=== PATIENT | female | born 1995 | race Hispanic/Latino ===

== ENCOUNTER 2017-01-24 07:30 | Inpatient (IN) | payer OTHER ==
[2017-01-24 11:03] VITALS: BMI 41.6
[2017-01-24] MEDS ORDERED: Lorazepam 2 MG/ML VIAL SLOW IVP PRN (14:40)
[2017-01-24] MEDS ORDERED: Ondansetron ODT 4 MG TAB PO PRN (14:40)
[2017-01-24] MEDS ORDERED: Ondansetron HCl/PF 4 MG/2 ML Vial IVP PRN (14:40)
[2017-01-24] MEDS ORDERED: Acetaminophen 325 MG TAB PO PRN (14:40)
[2017-01-24] MEDS ORDERED: PROVENTIL INHALER 6.7 G (200 INHALATIONS) INH PRN (14:40)
[2017-01-24 15:30] LABS: #Basophils 0.1 thou/uL (0.0-0.2); #Eosinphils 0.2 thou/uL (0.0-0.7); #Lymphocytes 2.2 thou/uL (1.20-3.40); #Monocytes 0.5 thou/uL (0.11-0.59); #Neutrophils 2.9 thou/uL (1.40-6.50); %Basophils 1.6 % (0.0-1.0); %Eosinophils 2.8 % (0.0-10.0); %Lymphocytes 37.7 % (28.0-48.0); %Monocytes 8.4 % (0.0-4.0); Hematocrit 38.1 % (36.0-47.0); Mean Platelet Volume 7.3 fL (7.4-10.4); Red Blood Cell (RBC) Count 4.44 mill/uL (4.00-5.20); White Blood Cell (WBC) Count 5.9 thou/uL (4.8-10.8)
[2017-01-24 15:54] LABS: ALT (SGPT) 15 U/L (8-55); AST (SGOT) 17 U/L (5-34); Alkaline Phosphatase 180 U/L (40-150); Anion Gap 12 mmol/L (10-20); BUN (Urea Nitrogen) 4 mg/dL (7.0-18.7); Bilirubin, Total 0.5 mg/dL (0.2-1.2); Calc. Creatinine Clearance 260 mL/min (70-130); Calcium 9.2 mg/dL (7.8-10.44); Carbon Dioxide 20 mmol/L (22-29); Chloride 95 mmol/L (98-107); Estimated GFR-MDRD Greater than 90; Globulin 3.8 g/dL (2.4-3.5); Protein, Total 7.8 g/dL (6.0-8.3)
[2017-01-24] MEDS ORDERED: OXcarbazepine 300 MG TAB PO SCH (21:00)
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
[2017-01-25] MEDS: OXcarbazepine 300 MG TAB PO SCH (09:39)
--- NOTE | 2017-01-25 16:51 | PRG ---
DATE OF SERVICE: 01/25/2017 LOCATION: [facility] SUBJECTIVE HISTORY: The patient remained stable overnight, has been stable from neurological standp oint. She currently denies any new neurological symptoms. She denies any headache, nausea, or vomi ting. She is able to eat and tolerate diet as well. The patient for the first 24 hours of the vide o EEG monitoring had 4 push button events which will be described in detail in the video EEG report, these were her habitual small left intense episode that she is currently having at night. No tonic clonic seizure activity overnight. The patient has been stable. OBJECTIVE HISTORY: VITAL SIGNS: Temperature 98.4, pulse rate 72, respiratory rate 20, O2 sats 97% on room air, and blo od pressure 105/77. GENERAL: Well-developed, well-nourished female, in no apparent distress. HEENT: Normocephalic, atraumatic. Normal sclerae. RESPIRATORY: Clear to auscultation bilaterally. CARDIOVASCULAR: Regular rate and rhythm. NEUROLOGIC: The patient is awake, alert, oriented x3. Speech and language are intact. Cranial ner ves: Pupils are reactive to light bilaterally. Extraocular movements intact. Visual jordan intact . No facial droop noted. Facial sensation symmetric bilaterally. Motor: Normal tone and bulk. T he patient had 5/5 strength in bilateral upper and lower extremities. Sensation intact to fine touc h throughout. Reflexes 1+ throughout. Toes are downgoing bilaterally. No clonus. Negative Hoffma n sign bilaterally. Cerebellar intact to syltko-[id number]-ywcnxp and hbmm-cj-qfok test bilaterally. Gai t and Romberg not tested. LABORATORY DATA: No new labs to review. IMAGING: No new imaging to review. IMPRESSION: 1. Nocturnal spell 2. History of complex partial epilepsy with generalization. 3. Hyponatremia, chronic. PLAN: 1. We will continue to monitor the patient in the epilepsy monitoring unit to capture more of her h abitual nocturnal spells which will further assist us in classifying the spells into epileptic versu s nonepileptic spells which will further guide us in the appropriate treatment plan. 2. Discussed in length with the patient and her father about decreasing her seizure medication to c apture more of her habitual nocturnal spells and to even capture her more intense strong seizures. The patient and her father are very hesitant to decrease the dose of Trileptal and they are also kamilah y hesitant to stop the medication to capture more spells. After a lengthy discussion, the patient a nd her father agreed to decrease the night dose of Trileptal from 1500 mg to 1200 mg. She did not w ant us to decrease the dose any further than that, so will continue the morning dose of Trileptal at 600 mg and decrease the night dose of Trileptal to 1200 mg from 1500 mg. 3. No sleep deprivation since patient's episodes happen during sleep. 4. Photic stimulation and hyperventilation daily. 5. Continue p.r.n. Ativan for prolonged seizures or cluster of seizures. 6. Fall precautions and seizure precautions implemented. 7. Trileptal level is still pending. 8. Regular diet. 9. Vital signs and neuro checks every 4 hours. 10. SCDs for DVT prophylaxis. 11. The 24-hour video EEG recording. Results were discussed in detail with the patient and the fat her spent more than 35 minutes discussing the first day video EEG results, discussing the treatment plan for day 2 and answering all of their questions to their satisfaction. I spent more than 35 minutes going over the entire treatment plan for day 2 and the results for day 1 and the patient and the father agreed with plan. The entire plan was also discussed with the nurs e taking care of the patient. We will continue to monitor the patient in the epilepsy monitoring un it with continuous video EEG monitoring.
[2017-01-25] MEDS ORDERED: OXcarbazepine 300 MG TAB PO SCH (21:00)
[2017-01-26] MEDS: OXcarbazepine 300 MG TAB PO SCH (09:43)
[2017-01-26 18:08] LABS: Anion Gap 11 mmol/L (10-20); BUN (Urea Nitrogen) 6 mg/dL (7.0-18.7); Calc. Creatinine Clearance 236 mL/min (70-130); Calcium 9.2 mg/dL (7.8-10.44); Carbon Dioxide 22 mmol/L (22-29); Chloride 101 mmol/L (98-107); Estimated GFR-MDRD Greater than 90
[2017-01-26] MEDS ORDERED: OXcarbazepine 300 MG TAB PO SCH (21:00)
--- NOTE | 2017-01-27 00:46 | PRG ---
DATE OF SERVICE: 01/26/2017 LOCATION: [place] [address]. SUBJECTIVE HISTORY: The patient did not have any acute events overnight. She has been stable from n eurological standpoint. She currently denies any neurological symptoms. She denies headaches, nause a, vomiting. She is able to eat and tolerate the diet well. The patient had 4 habitual events on da y 2 of 24 hours of video EEG monitoring. No tonic clonic seizure activity noted. The patient remain s stable. OBJECTIVE HISTORY: VITAL SIGNS: Temperature 98.5, pulse rate 78, respiratory rate 18, O2 sats 99% on room air, blood pr essure 118/67. GENERAL: Well-developed, well-nourished female in no apparent distress. RESPIRATORY: Clear to auscultation bilaterally. CARDIOVASCULAR: Regular rate and rhythm. NEUROLOGIC: The patient is awake, alert, and oriented x3. Speech and language are intact. Cranial nerves: Pupils are reactive to light bilaterally. Extraocular movements intact. Visual jordan inta ct. Facial sensation symmetric bilaterally. Motor: Normal tone and bulk. The patient had 5/5 stre ngth in bilateral upper and lower extremities . PLAN: 1. We will continue to monitor the patient in the epilepsy monitoring unit with continuous video EEG monitoring to capture more of her current habitual episodes that she is having at night, so we need to further classify those spells if epileptic versus nonepileptic which would further guide us in the appropriate treatment plan. Also, we will decrease her seizure medication with and we can cap ture the bigger episodes that they describe as seizures to see if those big episodes/seizures are epi leptic or nonepileptic in nature. So far we have not captured any of her big episode/seizure. We skinner ve captured some small episodes, but we have not captured any big episodes that they describe as big seizures, so we will continue to monitor the patient to see if we can capture her big seizure-like ep isode so that we can determine if they are epileptic or nonepileptic in nature. 2. The patient and the father were very hesitant to stop her antiepileptic medications while she is in the epilepsy monitoring unit. They do not want to stop her seizure medication altogether. So we will decrease the Trileptal dose to 600 mg at night and 300 mg tomorrow morning to see if we can capt ure her big seizure-like episodes. 3. No sleep deprivation since the patient's episodes happened during sleep. 4. Photic stimulation and hyperventilation. 5. Continue p.r.n. Ativan for prolonged seizures or cluster of seizures. 6. Fall precautions and seizure precautions implemented. 7. Trileptal level is still pending. 8. Regular diet. 9. Vital signs and neuro checks every 4 hours. 10. SCDs per deep venous thrombosis prophylaxis. 11. The 24-hour second day video EEG recording results were discussed in detail with the patient and the father. I spent more than 35 minutes going over the second day video EEG results, discussing th e adjustment in her antiepileptic medication for tonight and tomorrow morning, and answering all thei r questions to their satisfaction. The patient and the father agreed with the plan. The entire plan was also discussed with the nurse taking care of the patient. So we will continue to monitor the pa tient to capture her small nocturnal episodes as well as to see if we can capture any of her big seiz ure-like episodes by adjusting/decreasing her seizure medication.
[2017-01-27] MEDS ORDERED: OXcarbazepine 300 MG TAB PO SCH ×3 (09:00→21:00)
[2017-01-27] MEDS ORDERED: OXcarbazepine 600 MG TAB PO SCH (21:00)
--- NOTE | 2017-01-28 05:57 | PRG ---
DATE OF SERVICE: 01/27/2017. SUBJECTIVE HISTORY: The patient did not have any acute events overnight. She has been stable from neurological standpoint and she currently denies any new neurological symptoms. She denies headache , nausea, or vomiting. She is able to eat and tolerate her diet well. The patient had few more of her habitual nocturnal events on day #3 of video EEG monitoring. No tonic clonic seizure activity n oted. The patient remains stable. OBJECTIVE HISTORY: VITAL SIGNS: Temperature 98.4, pulse rate 92, respiratory rate 18, O2 sats 98% on room air, blood p ressure 127/76. GENERAL: Well-developed and well-nourished female, in no apparent distress. RESPIRATORY: Clear to auscultation bilaterally. CARDIOVASCULAR: Regular rate and rhythm. NEUROLOGIC: The patient is awake, alert, and oriented x3. Speech and language are intact. Cranial nerves: Pupils are reactive to light bilaterally. Extraocular movements are intact. Visual field s are intact. No facial droop noted. Facial sensation is symmetric bilaterally. Motor: Normal to ne and bulk. The patient had 5/5 strength in bilateral upper and lower extremities. Sensation is i ntact to fine touch throughout. Reflexes are 1+ throughout. Toes are downgoing bilaterally. No cl onus. Negative Gonzales sign bilaterally. Cerebellar intact to dkajuf-ptac-qyvffc and ciwi-nc-upzr test bilaterally. Gait and Romberg not tested. LABORATORY DATA: Basic metabolic panel done yesterday showed sodium of 130. Trileptal level is 33, which is within the therapeutic range. IMAGING: No new imaging to review. IMPRESSION: 1. Nocturnal spells. 2. History of complex partial epilepsy with generalization. 3. Hyponatremia, chronic. PLAN: 1. The patient has had several of her habitual nocturnal small episodes during her hospital stay. The patient has not had any of her big episodes or seizures that she used to have before while she h as been here, so we will continue to monitor the patient in the epilepsy monitoring unit to capture more of her episodes. 2. We will put her back on her home dose of Trileptal 600 mg in the morning and total of 1500 mg at night. We will resume the home dose of Trileptal starting tonight. 3. No sleep deprivation since the patient's episodes happened during sleep. 4. Photic stimulation and hyperventilation daily. 5. Continue p.r.n. Ativan for prolonged seizures or cluster of seizures. 6. Fall precautions and seizure precautions implemented. 7. Regular diet. 8. Vital signs and neuro checks every 4 hours. 9. SCDs for DVT prophylaxis. 10. The 24-hour video EEG results were discussed in detail with the patient. The patient has had s everal of her habitual nocturnal episodes. These episodes usually happen when she is sleeping, happ ens after several hours of sleep, she suddenly wakes up and has thrashing movement of her arms and l egs. She is very hypermotor. She has non-rhythmic movement of her arms and legs in different direc tions with different amplitude and frequency. She has her eyes open and looks around. At times, sh mena appears to be scared. There is some grunting noted. There is intermittent stiffening of her arms and legs noted. This episode lasts anywhere between couple of seconds to 1 minute, not more than 2 minutes. There was no clear postictal phase, after the episodes, she returns back to her baseline almost immediately. She does not recall most of the episodes. At this point, the differential includes: 1. Non-REM sleep disorder including sleep terror. 2. Parasomnias. 3. seizures. The EEG during this event only shows increased myogenic activity with normal un derlying background rhythm. No epileptiform activity or electrographic seizures noted during these events. There is no suppression noted in any of the hemispheres. The entire results were discussed in detail with the patient and the father and I spent more than 35 minutes discussing the results, going over the treatment plan with them, likely the plan upon discharge will be to resume her home d ose of Trileptal and likely refer her for sleep study with polysomnogram to rule out sleep related d isorder. For now, we will continue to monitor the patient in the epilepsy monitoring unit. Again, I spent more than 35 minutes going over the entire treatment plan.
[2017-01-28 11:12] VITALS: BP 122/82; TEMP 98.1
--- NOTE | 2017-02-07 10:41 | EEG ---
Referring Physician: DR. JASSON GREY EEG # [id number] [id number] PROCEDURE: VIDEO ELECTROENCEPHALOGRAM REPORT PATIENT NAME: ELLIE SHETTY DATE OF : 1995 STUDY DATE: 01/24/2017, 10:53 AM - 01/25/17, 11:00 AM, DAY 1 VIDEO EEG REPORT INDICATION: NOCTURNAL SPELLS THE STUDY IS REVIEWED AND INTERPRETED BY ME. TECHNICAL DESCRIPTION: The study is of excellent quality for interpretation. It is a 22 channel digital EEG recording utilizing ten-twenty international electrode placement system. BACKGROUND EEG DESCRIPTION: WAKEFULNESS: During wakefulness the background activity consists of mixed rhythms, the patient has intermittent 8 hertz activity mixed with abundant moderate amplitude theta activity of 6-7 hertz, along with low amplitude beta activity and myogenic activity. At times theta rhythm is more seen than alpha rhythm. The background activity is symmetric and reactive bilaterally. DROWSINESS: The subject is able to attain periods of drowsiness with moderate to high amplitude diffuse theta activity. There is no consistent asymmetry or paroxysmal activity noted. SLEEP: Subject is able to attain non-REM sleep with high amplitude normal sleep potentials. Again, no consistent asymmetry or paroxysmal activity is noted. The patient has several normal arousals during sleep. INDUCTION: HYPERVENTILATION: With fair effort results in no significant change in the background activity. PHOTIC STIMULATION: No photic drive seen. INTERICTAL EEG DESCRIPTION: During Day 1 video EEG report, there is no clear epileptiform activity noted. No electrographic seizures noted. No focal abnormality noted. ICTAL EEG DESCRIPTION: The patient had 4 push button events, all the 4 events were similar clinically and electrographically. The first push button event was on 01/24/2017 at 14:15:21, the second push button event was on 01/25/2017 at 00:51:56 , the third push button event was on 01/25/2017 at 4:45:14 AM, the last push button event was on 01/25/2017 at 11:00:17 AM. Clinically, with all the 4 push button events, initially patient is sleeping and then suddenly she wakes up, she becomes hyperactive, she starts moving her hands and legs in a nonrhythmic fashion with varying amplitude, frequency and direction. In between, at times she tenses up, she looks around and appears to be disoriented or confused and scared, she exhibits some grunting. This is followed by hyperventilating and heavy and slow breathing and cessation of her movement and eventually she returns to her baseline. With all the 4 events, there is no postictal period noted. She is able to follow commands appropriately, answer orientation questions, there is no focal weakness noted after the events. These events last anywhere between 1-2 minutes, again with no postictal confusion or weakness. After the end of the event she goes back to sleep. EEG DESCRIPTION: With all the 4 events, the EEG starts with normal sleep background rhythm with normal sleep potentials, this is followed by increased EMG/myogenic activity with arousal clinically. In between the myogenic activity, the underlying background activity shows theta and delta rhythm which is symmetric bilaterally. This is followed by decreased myogenic activity with continued theta and delta activity which eventually returns back to her normal background rhythm afterwards. There is no suppression noted after the event sops. There is no epileptiform activity noted during these events. No electrographic seizures noted during these events. There is no buildup on any rhythm during these events. EK per minute. OF NOTE: During these events the patient's heart rate increases. She becomes tachycardic with decreased blood pressure. There was no tonic-clonic activity noted with these events, no foaming at the mouth noted with these events. IMPRESSION: DAY 1 VIDEO EEG REPORT DAY 1 VIDEO EEG REPORT SHOWS NORMAL AWAKE AND ASLEEP STAGES. AT TIMES, THERE IS PROMINENCE OF THETA RHYTHM COMPARED TO ALPHA RHYTHM. THERE IS NO INTERICTAL EPILEPTIFORM ACTIVITY OR ELECTROGRAPHIC SEIZURES NOTED. THE PATIENT HAD 4 PUSH BUTTON EVENTS, DESCRIBED ABOVE, WHICH WERE NOT ASSOCIATED WITH ANY ELECTROGRAPHIC CHANGES WHICH WOULD SUPPORT NONEPILEPTIC SPELLS. WE WILL CONTINUE TO MONITOR THE PATIENT TO CAPTURE MORE OF HER SPELLS. THE RESULTS WERE DISCUSSED IN DETAIL WITH THE PATIENT AND HER FATHER. Industrial Truck Driver: AMANDA Machine Burrer: EEG.YOKASTA MONROE
--- NOTE | 2017-02-07 15:26 | EEG ---
Referring Physician: DR. JASSON GREY EEG # [id number] 17-14 PROCEDURE: VIDEO ELECTROENCEPHALOGRAM REPORT PATIENT NAME: ELLIE SHETTY / MOUSTAPHA 1995 STUDY DATE: 01/25/2017 11:00 AM - 01/26/2017. 11:00 AM, DAY 2 VIDEO EEG REPORT INDICATION: NOCTURNAL SPELLS THE STUDY IS REVIEWED AND INTERPRETED BY ME. TECHNICAL DESCRIPTION: This is a 22 channel digital EEG recording performed utilizing ten-twenty international electrode placement system. INDUCTION: HYPERVENTILATION: With fair effort results in no significant change in the background activity. PHOTIC STIMULATION: No photic drive seen, Abundant eye blink artifact noted with photic stimulation. INTERICTAL EEG DESCRIPTION: ICTAL EVENTS: The first push button event on 01/25/2017 at19:04:50 was testing done by the nurse to make sure that the system was working. The patient had total of 5 events on Day 2 video EEG recording, 2 of the 5 events were not associated with push button, 3 of the 5 events were push button events. CLINICAL DESCRIPTION: All the 5 events were similar in nature clinically. The patient was sleeping and then she would wake up all of a sudden and would start having random, nonrhythmic movement of her arms and legs with varying frequency , amplitude and direction, at times side to side movement of her legs noted. She had her eyes open and she would be looking around, at times appeared to be scared, very restless and hypermotor, intermittent stiffness of her arms and legs noted. At times she would grunt. With one of the events she was purposeful during the event and was covering herself with the blanket and smiling. The events lasted roughly a minute or shorter in duration. The patient did not have any postictal symptoms. After she stopped moving, she is completely back to her normal self. With these events there is transient increase in her heart rate. No other change in her vital signs noted. With one of the events she said that she had a nightmare where she felt like someone is going to hurt her or her Dad. EEG DESCRIPTION: The electrographic findings remained the same with all the 5 events. The patient starts with normal sleep background and with the clinical event there is increased myogenic activity noted on the EEG with underlying theta and delta background. This is followed by decrease in myogenic activity but continuation of underlying normal background rhythm. After the clinical event stops, there is no suppression noted on the EEG. No epileptiform activity noted during these events, no electrographic seizures noted during these events. The EEG continues to show normal background rhythm with increased myogenic activity. This would support nonepileptic events. IMPRESSION: DAY 2 VIDEO EEG REPORT DAY 2 VIDEO EEG REPORT SHOWS NORMAL AWAKE, DROWSY AND ASLEEP STAGES. THERE IS NO INTERICTAL EPILEPTIFORM ACTIVITY NOTED. NO ELECTROGRAPHIC SEIZURES NOTED. NO ASYMMETRY NOTED BETWEEN THE TWO HEMISPHERES. THE PATIENT HAD 5 ICTAL EVENTS DESCRIBED ABOVE WHICH DID NOT SHOW ANY CHANGE ON THE EEG AND EEG CONTINUES TO SHOW NORMAL BACKGROUND RHYTHM AND THIS WOULD SUPPORT NONEPILEPTIC EVENTS. WILL CONTINUE TO MONITOR THE PATIENT TO CAPTURE MORE OF HER HABITUAL EVENTS. THE RESULTS WERE DISCUSSED IN DETAIL WITH THE PATIENT AND HER FATHER. OF NOTE: EKG IN 90s. Imaging Tech:[email or web address] Storage Management Architect: EEG.YOKASTA MONROE
--- NOTE | 2017-02-07 16:02 | EEG ---
Referring Physician: DR. JASSON GREY EEG # [id number] 17-14 PROCEDURE: VIDEO ELECTROENCEPHALOGRAM REPORT NAME OF PATIENT: ELLIE SHETTY 1995 # [id number] LOCATION: [place] [id number] REPORT TYPE: VIDEO ELECTROENCEPHALOGRAM REPORT: STUDY DATE: 01/26/2017, 11:00 AM - 01/27/2017, 11:00 AM, DAY 3 VIDEO EEG REPORT THE STUDY IS REVIEWED AND INTERPRETED BY ME. TECHNICAL DESCRIPTION: Study is of excellent quality for interpretation. This is a 22 channel digital EEG recording performed utilizing ten-twenty international electrode placement system. BACKGROUND EEG DESCRIPTION: WAKEFULNESS: During wakefulness, the background activity consists of mixed frequencies, includes moderate amplitude theta rhythm of 7 hertz, mixed with intermittent alpha rhythm of 8-9 hertz, low amplitude beta activity and also myogenic activity representing frontalis and temporalis muscles bilaterally. It appears that there is more theta activity than alpha rhythm which may indicate mild slowing. The background activity is symmetric and reactive bilaterally. There is no asymmetry noted between the two hemispheres. DROWSINESS: The subject is able to attain periods of drowsiness with diffuse theta activity. SLEEP: The subject is able to attain non-REM sleep with normal high amplitude sleep potentials. During sleep, there is moderate to high amplitude theta and delta slowing noted in bioccipital regions, which does not evolve. There are also multiple arousals noted during sleep. INDUCTION: HYPERVENTILATION: Was stopped after some time because patient could not give full effort. PHOTIC STIMULATION: No photic drive seen, eye blink artifact noted. INTERICTAL EEG DESCRIPTION: During Day 3 video EEG recording there is no clear epileptiform activity noted, no electrographic seizures noted. No focal slowing or asymmetry noted between the two hemispheres. ICTAL EEG DESCRIPTION: The patient had 3 ictal events on Day 3 video EEG recording. Clinically the events are similar to her prior events, patient is usually sleeping and then she wakes up. She has thrashing movement of her arms and legs, she moves her arms and legs nonrhythmically in different directions with different amplitude and frequencies. There is intermittent stiffness of her arms and legs, she has her eyes open and looks around, sometimes she appears to be scared, There is some grunting noted. The events last anywhere between 1-2 minutes, mostly around 1 minute. There is no postictal phase noted. The patient returns to baseline immediately. There is transient increase in her heart rate with these events. She does not recall most of the events. EEG DESCRIPTION: The EEG description also remains the same like her prior events. It starts with normal sleep background, it appears that the patient is in deep non-REM sleep, and with the clinical event there is increased myogenic activity noted diffusely, this is mixed with underlying theta and delta background. Eventually, the myogenic activity decreases and subsides, but the underlying background activity continues to show theta and delta activity. There is no epileptiform activity during these events, no electrographic seizures noted. There is no evolving of any rhythm. There is no suppression noted after the event stops. EKG: IN 90s. IMPRESSION: DAY 3 VIDEO EEG REPORT ON DAY 3 VIDEO EEG RECORDING, IT APPEARS THAT EVEN THOUGH THE PATIENT HAS INTERMITTENT ALPHA RHYTHM, THE PREDOMINANT RHYTHM IS THETA WHICH INDICATES MAYBE MILD SLOWING. THIS SLOWING IS MORE PROMINENT DURING SLEEP. THERE IS NO CLEAR INTERICTAL EPILEPTIFORM ACTIVITY OR ELECTROGRAPHIC SEIZURE. THE PATIENT HAD 3 MORE SIMILAR ICTAL EVENTS ON DAY 3, DESCRIBED ABOVE, WITH NO ASSOCIATED EPILEPTIFORM ACTIVITY OR ELECTROGRAPHIC SEIZURE ON THE EEG. THE EEG DURING THESE EVENTS SHOWS INCREASED MYOGENIC ACTIVITY WITH THETA AND DELTA BACKGROUND. THE DIFFERENTIAL FOR THESE EVENTS COULD BE: 1.) NONREM SLEEP DISORDER / SLEEP TERROR 2.) PARASOMNIAS 3.) NOCTURNAL FRONTAL LOBE SEIZURES. THE PATIENT DID NOT HAVE ANY TONIC-CLONIC SEIZURE ACTIVITY DURING HER ENTIRE STAY SO FAR. THE ENTIRE EEG RESULTS WERE DISCUSSED IN DETAIL WITH THE PATIENT AND HER FATHER. WILL CONTINUE TO MONITOR THE PATIENT FOR ANOTHER DAY. Repulping Supervisor: AMANDA Activities Concierge: EEG.YOKASTA MONROE
== END 2017-01-28 15:46 | disposition home or self-care (01) | DRG 887 ==
LOC: IMCU/EMU 07:30 → UNDOADMIN 07:30 → SURG A 07:30 → EDSTATUS 08:00 → IMCU/EMU 11:46
PROVIDERS: ADMIT Student in an Organized Health Care Education/Training Program; ATTEND Student in an Organized Health Care Education/Training Program
DX: G47.9 Sleep disorder, unspecified (principal); E87.1 Hypo-osmolality and hyponatremia; G40.209 Localization-related (focal) (partial) symptomatic epilepsy and epileptic syndromes with complex partial seizures, not intractable, without status epilepticus; F51.4 Sleep terrors [night terrors]; F51.8 Other sleep disorders not due to a substance or known physiological condition; G47.50 Parasomnia, unspecified; J45.909 Unspecified asthma, uncomplicated; Z91.012 Allergy to eggs; Z91.010 Allergy to peanuts; Z91.013 Allergy to seafood
CPT/HCPCS: 36415; 80048; 80053; 80183; 85025; 95951; 95957

== ENCOUNTER 2017-05-22 02:54 | Inpatient (IN) | payer OTHER ==
[2017-05-22 03:36] LABS: Lavender RECEIVED; Red RECEIVED
[2017-05-22 03:40] LABS: #Basophils 0.1 thou/uL (0.0-0.2); #Eosinphils 0.2 thou/uL (0.0-0.7); #Lymphocytes 2.5 thou/uL (1.20-3.40); #Monocytes 0.6 thou/uL (0.11-0.59); #Neutrophils 3.2 thou/uL (1.40-6.50); %Basophils 0.8 % (0.0-1.0); %Eosinophils 2.5 % (0.0-10.0); %Lymphocytes 38.9 % (28.0-48.0); %Monocytes 9.4 % (0.0-4.0); %Neutrophils 48.4 % (31.0-61.0); Hemoglobin 11.4 g/dL (12.0-16.0); Mean Corpuscular HGB CONC 34.1 g/dL (32.0-36.0); Mean Corpuscular Hemoglobin 28.8 pg (25.0-35.0); Mean Corpuscular Volume 84.3 fl (77.0-87.0); Mean Platelet Volume 7.1 fL (7.4-10.4); Platelet Count 254 thou/uL (130-400); RBC Distribution Width 12.6 % (11.5-14.5); Red Blood Cell (RBC) Count 3.98 mill/uL (4.00-5.20); White Blood Cell (WBC) Count 6.5 thou/uL (4.8-10.8)
[2017-05-22 03:53] LABS: ALT (SGPT) 16 U/L (8-55); AST (SGOT) 16 U/L (5-34); Alkaline Phosphatase 178 U/L (40-150); Anion Gap 12 mmol/L (10-20); BUN (Urea Nitrogen) 5 mg/dL (7.0-18.7); Bilirubin, Total 0.3 mg/dL (0.2-1.2); Calc. Creatinine Clearance 0 mL/min (70-130); Calcium 9.1 mg/dL (7.8-10.44); Carbon Dioxide 22 mmol/L (22-29); Chloride 100 mmol/L (98-107); Estimated GFR-MDRD Greater than 90; Globulin 3.4 g/dL (2.4-3.5); Glucose 95 mg/dL (70-105); Potassium 3.9 mmol/L (3.5-5.1); Protein, Total 7.4 g/dL (6.0-8.3); Sodium 130 mmol/L (136-145)
[2017-05-22 04:12] LABS: Bilirubin Negative (Negative); Blood, Urine Negative (Negative); Clarity CLEAR (Clear); Glucose, Urine (Dipstick) Negative (Negative); Leukocyte Negative (Negative); Nitrite Negative (Negative); Protein, Urine (Dipstick) Negative (Neg-Trace); Urobilinogen 0.2 mg/dL (0.2-1.0); pH, Urine 6.5 (5.0-9.0)
[2017-05-22] MEDS ORDERED: Fosphenytoin Sodium 1,500 MG in Sodium Chloride 0.9% 100 ML IVPB SCH (04:15)
[2017-05-22 04:32] LABS: Pregnancy Test - Urine (BHCG) Negative (Negative); Pregu Control Background? CLEAR/WHITE (CLR/WHITE); Pregu Control Bar Appear? YES (CONTROL BAR)
[2017-05-22 04:34] LABS: Amphetamine Not Detected (NotDetected); Barbiturates Screen Not Detected (NotDetected); Benzodiazepine Screen Detected (NotDetected); Cocaine Metabolite Screen Not Detected (NotDetected); Medtox Control Line Valid? VALID (VALID); Medtox Reader # READER 4; Methadone Not Detected (NotDetected); Methamphetamine Not Detected (NotDetected); Opiate Screen Not Detected (NotDetected); Oxycodone Screen Not Detected (NotDetected); Phencyclidine (PCP) Not Detected (NotDetected); THC/Cannabinoid Screen Not Detected (NotDetected); Tricyclic Screen Not Detected (NotDetected)
[2017-05-22 05:13] LABS: Carbamazepine-Tegretol 2.6 ug/mL (4.0-12.0)
[2017-05-22] MEDS ORDERED: Lorazepam 2 MG/ML VIAL ONE (05:28)
[2017-05-22 06:26] VITALS: BMI 42.1
[2017-05-22] MEDS ORDERED: Ondansetron ODT 4 MG TAB SL PRN (06:50)
[2017-05-22] MEDS ORDERED: Ondansetron HCl/PF 4 MG/2 ML Vial IVP PRN ×2 (06:50→07:09)
[2017-05-22] MEDS ORDERED: Lorazepam 2 MG/ML VIAL SLOW IVP PRN ×2 (06:52→07:09)
[2017-05-22] MEDS ORDERED: traMADol HCl 50 MG TAB PO PRN (07:09)
[2017-05-22] MEDS ORDERED: Loratadine 10 MG TAB PO PRN (07:09)
[2017-05-22] MEDS ORDERED: Mag-Al 1200 mg/1200 mg/30 ML UDCUP PO PRN (07:09)
[2017-05-22] MEDS ORDERED: Milk Of Magnesia 30 ML UDCUP PO PRN (07:09)
[2017-05-22] MEDS ORDERED: Senokot 8.6 MG TAB PO PRN (07:09)
[2017-05-22] MEDS ORDERED: hydrALAZINE 20 MG/ML VIAL SLOW IVP PRN (07:09)
[2017-05-22] MEDS ORDERED: Diabetic Tussin 200 MG/10 ML UDCUP PO PRN (07:09)
[2017-05-22] MEDS ORDERED: Bisacodyl 5 MG TAB PO PRN ×2 (07:09)
[2017-05-22] MEDS ORDERED: Benzonatate 100 MG CAP PO PRN (07:09)
[2017-05-22] MEDS ORDERED: Nitroglycerin 0.4 MG TAB (25 Tab Bottle) SL PRN (07:09)
[2017-05-22] MEDS ORDERED: Calcium Carbonate 500 MG ChewTAB PO PRN (07:09)
--- NOTE | 2017-05-22 08:24 | CT ---
PRELIMINARY REPORT/[facility]/EMERGENCY AFTER HOURS PROCEDURE: EXAM: CT Head Without Intravenous Contrast EXAM DATE/TIME: 05/22/2017 4:12 AM CLINICAL HISTORY: 21 years old, female; Condition or disease; Other: Seizure; Patient HX: F20 presents to ed C/O seizur e. Pt seen in [place] approx. X 3 days ago. Family notes following discharge, pt began having se izures every 5 minutes. Pt has been unable to sleep. HX seizures. 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 Pt has been compliant with seizure medication since that time. TECHNIQUE: Axial computed tomography images of the head/brain without intravenous contrast. COMPARISON: No relevant prior studies available. FINDINGS: Brain: No evidence of acute intracranial hemorrhage, extraxial fluid or midline shift. No evidence of acute large vessel infarction. Ventricles: Unremarkable. No ventriculomegaly. Bones/joints: Unremarkable. No acute fracture. Soft tissues: Unremarkable. Sinuses: Unremarkable as visualized. No acute sinusitis. Mastoid air cells: Unremarkable as visualized. No mastoid effusion. IMPRESSION: 1. No evidence of acute intracranial hemorrhage, extraxial fluid or midline shift. 2. No evidence of acute large vessel infarction. Thank you for allowing us to participate in the care of your patient. Dictated and Authenticated by: Toby Chanel MD 05/22/2017 4:25 AM Central Time ([place] & [place]) FINAL REPORT EMERGENCY AFTER HOURS STUDY CT BRAIN NONCONTRAST: DATE: 05/22/17. TIME: 4:14 a.m. HISTORY: A 21-year-old female status post seizure. FINDINGS: There is no midline shift or any other mass effect. There is no evidence of acute intracranial hemor rhage, large cortical infarct, obstructive hydrocephalus, or extraaxial fluid collection. The calvar ium is intact. This report agrees with preliminary report by [facility]. IMPRESSION: No acute intracranial findings. genna [] POS: JUAN ANTONIO
[2017-05-22] MEDS ORDERED: levETIRAcetam 500 mg/5 ml Oral Solution PO SCH (09:00)
[2017-05-22] MEDS ORDERED: OXcarbazepine 600 MG TAB PO SCH (09:00)
[2017-05-22] MEDS: Famotidine 20 MG TAB PO SCH ×2 (09:24→21:37)
[2017-05-22] MEDS: Enoxaparin Sodium 40 MG/0.4 ML SYRINGE SC SCH (09:24)
[2017-05-22] MEDS: OXcarbazepine 300 MG TAB PO SCH ×2 (09:24→21:43)
[2017-05-22] MEDS: Sodium Chloride 0.9% 1,000 ML IV SCH (09:25)
[2017-05-22] MEDS: levETIRAcetam 500 mg/5 ml Oral Solution PO SCH ×2 (09:38→21:37)
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
[2017-05-22] MEDS: Diazepam 2 MG TAB PO PRN (10:51)
[2017-05-22] MEDS: clonazePAM 0.5 MG TAB PO SCH (21:37)
--- NOTE | 2017-05-23 00:03 | CON ---
DATE OF CONSULTATION: 05/22/2017 REFERRING PHYSICIAN: Dr. Nena Palomino. REASON FOR CONSULTATION: Seizures. HISTORY OF PRESENT ILLNESS: is a pleasant 21-year-old female, who has been co nsulted for evaluation of seizures. History is obtained from father, who was present at bedside. Fa ther reports the patient has been diagnosed with seizure disorder in [place]. She was starte d on Trileptal by pediatric neurologist about 14-15 years ago. She had been seizure free up until a few months ago when she started having her spells that she had as a child. She has been evaluated by Dr. Tyree Lees and had 2 days of epilepsy monitoring unit in 01/2017, which showed no electrographi c seizures. It was felt that her symptoms could be secondary to sleep disorder or frontal lobe seizu res. Father describes that she has been having these episodes only when she is falling asleep or whe n she is waking up. She wakes up and starts grimacing and stiffens up her upper extremities and star ts convulsing. This lasts for 3-5 minutes followed by drowsiness and generalized weakness. She has had multiple spells over the past 2 days, which prompted him to bring her to [facility]. She actually has seen Dr. Tyree Lees this past week, and at that time, Keppra was added 250 mg twice daily. She was supposed to be referred to a sleep specialist; however, it is still pending th rough her insurance company. According to the nurse, the patient has had multiple habitual spells si nce being admitted to the hospital. PAST MEDICAL HISTORY: Significant for epilepsy, asthma, juvenile arthritis. PAST SURGICAL HISTORY: Significant for bilateral myringotomy, tonsillectomy, and adenectomy. PAST PSYCHIATRIC HISTORY: Mild mental retardation. SOCIAL HISTORY: She lives with her family. There is no history of smoking, alcohol use, or illicit drug use. FAMILY HISTORY: Noncontributory except dad with a history of sleepwalking. CURRENT MEDICATIONS: Please review MAR. ALLERGIES: EGG, PEANUT, and SHELLFISH derivatives. REVIEW OF SYSTEMS: As mentioned in the HPI, otherwise negative. PHYSICAL EXAMINATION: VITAL SIGNS: Blood pressure of 109/58, pulse of 70, temperature of 97.2, respirations of 16, O2 sat is 96% on room air. GENERAL: A well-developed, well-nourished female, in no apparent distress. RESPIRATORY: Clear to auscultation bilaterally. CARDIOVASCULAR: Regular rate and rhythm. NEUROLOGIC: Mental status: The patient is awake, alert, oriented x3. Speech and language: Fluent speech. Cranial nerves: Pupils are 3 mm and reactive. Visual jordan are intact. External muscles are intact. No nystagmus noted. Face is symmetric. Tongue and uvula midline. Motor exam showed no rmal tone and bulk with a 5/5 strength in both upper and lower extremities. Sensory: Sensation is i ntact and symmetric. Deep tendon reflexes 2+ reflexes in both upper and lower extremities. Babinski : Plantar responses flexion bilaterally. Coordination intact to [id number] and finger tappi ng bilaterally. LABORATORY DATA: Labs are reviewed, which included CBC, CMP, urinalysis, and urine drug screen and c arbamazepine level. Hemoglobin of 11.4, hematocrit of 33.5, sodium level 130. Alkaline phosphatase of 178, Tegretol level of 2.6. Urine drug screen was positive for benzodiazepine, otherwise unremark able. IMAGING STUDIES: Head CT without contrast was reviewed, which showed no acute intracranial abnormali ty. IMPRESSION: 1. Generalized epilepsy. 2. Possible sleep disorder. ASSESSMENT AND PLAN: is a pleasant 21-year-old female, who presented with mul tiple episodes of seizure-like episodes that are primarily nocturnal. Given the description of her s pells, this could be underlying sleep disorder. Apparently, she was supposed to be referred to the [facility] specialist; however, it is being worked out through her insurance company. I have discussed wit h the patient's father in detail and explained that medications do take some time to be effective. S he was just recently started on medication, Keppra, which I have advised him to continue. She will c ontinue on Trileptal at the current dose. I have added clonazepam 0.5 mg at bedtime, which may help with some of the sleep disorder as well as seizures. If she remains stable overnight, she is okay to be discharged to home. She will follow up with Dr. Tyree Lees as outpatient. Thank you for consultation.
[2017-05-23] MEDS: Diazepam 2 MG TAB PO PRN (00:21)
[2017-05-23 04:58] LABS: #Basophils 0.1 thou/uL (0.0-0.2); #Eosinphils 0.2 thou/uL (0.0-0.7); #Lymphocytes 2.2 thou/uL (1.20-3.40); #Monocytes 0.4 thou/uL (0.11-0.59); #Neutrophils 1.7 thou/uL (1.40-6.50); %Basophils 1.2 % (0.0-1.0); %Eosinophils 4.7 % (0.0-10.0); %Lymphocytes 48.5 % (28.0-48.0); %Monocytes 7.9 % (0.0-4.0); %Neutrophils 37.7 % (31.0-61.0); Hemoglobin 10.9 g/dL (12.0-16.0); Mean Corpuscular HGB CONC 33.7 g/dL (32.0-36.0); Mean Corpuscular Hemoglobin 28.7 pg (25.0-35.0); Mean Corpuscular Volume 85.1 fl (77.0-87.0); Mean Platelet Volume 7.5 fL (7.4-10.4); Platelet Count 228 thou/uL (130-400); RBC Distribution Width 12.3 % (11.5-14.5); Red Blood Cell (RBC) Count 3.79 mill/uL (4.00-5.20); White Blood Cell (WBC) Count 4.6 thou/uL (4.8-10.8)
[2017-05-23 05:21] LABS: Anion Gap 12 mmol/L (10-20); BUN (Urea Nitrogen) 4 mg/dL (7.0-18.7); Calc. Creatinine Clearance 259 mL/min (70-130); Calcium 8.5 mg/dL (7.8-10.44); Carbon Dioxide 21 mmol/L (22-29); Chloride 100 mmol/L (98-107); Estimated GFR-MDRD Greater than 90; Glucose 84 mg/dL (70-105); Sodium 129 mmol/L (136-145)
[2017-05-23] MEDS: Sodium Chloride 0.9% 1,000 ML IV SCH (05:56)
[2017-05-23] MEDS: Famotidine 20 MG TAB PO SCH ×2 (09:21→21:09)
[2017-05-23] MEDS: OXcarbazepine 300 MG TAB PO SCH ×2 (09:21→21:09)
[2017-05-23] MEDS: Enoxaparin Sodium 40 MG/0.4 ML SYRINGE SC SCH (09:21)
[2017-05-23] MEDS: levETIRAcetam 500 mg/5 ml Oral Solution PO SCH ×2 (09:22→21:06)
--- NOTE | 2017-05-23 12:50 | PDOC.PN ---
- Subjective Encounter Start Date: 05/23/17 Encounter Start Time: 12:49 Subjective: had small episodes last night & finally feell asleep w Ativan - Objective MAR Reviewed: Yes Vital Signs & Weight: Vital Signs (12 hours) Temp Pulse Resp BP Pulse Ox 05/23/17 11:49 97.6 F 78 16 116/61 99 05/23/17 08:00 97.4 F L 60 16 99 05/23/17 07:50 97.4 F L 60 16 92/57 L 99 05/23/17 04:00 98.3 F 71 18 121/77 98 Weight Admit Weight 237 lb 12.8 oz Weight 237 lb 12.8 oz I&O: 05/22/17 05/23/17 05/24/17 06:59 06:59 06:59 Intake Total 480.5 Balance 480.5 Result Diagrams: 05/23/17 04:37 05/23/17 04:37 Phys Exam - Physical Examination Constitutional: NAD HEENT: PERRLA, moist MMs, sclera anicteric, oral pharynx no lesions Neck: no nodes, no JVD, supple, full ROM Respiratory: no wheezing, no rales, no rhonchi, clear to auscultation bilateral Cardiovascular: RRR, no significant murmur, no rub, gallop Gastrointestinal: soft, non-tender, no distention, positive bowel sounds Musculoskeletal: no edema, pulses present Neurological: non-focal, normal sensation, moves all 4 limbs Psychiatric: normal affect, A&O x 3 Skin: no rash Dx/Plan (1) Sleep disorder Code(s): G47.9 - SLEEP DISORDER, UNSPECIFIED Status: Chronic (2) Seizure Code(s): R56.9 - UNSPECIFIED CONVULSIONS Status: Chronic (3) Hyponatremia Code(s): E87.1 - HYPO-OSMOLALITY AND HYPONATREMIA Status: Chronic - Plan plan discussed w/ family, out of bed/ambulate, DVT proph w/SCDs cont trileptal and keppra for now.OP neurology f/u -: symptoms most C/w sleep disorder.pt has F/U for sleep study -: will add prn Ativan for night w continuing klonopin hs -: re assured dad & pt that these are not seizures & will need to be seen by a -: sleep specialist.will monitor ON w these sedatives w home in am ,johnny * . Review of Systems - Review of Systems Constitutional: negative: fever, chills, sweats, weakness, malaise, other Eyes: negative: Pain, Vision Change, Conjunctivae Inflammation, Eyelid Inflammation, Redness, Other ENT: negative: Ear Pain, Ear Discharge, Nose Pain, Nose Discharge, Nose Congestion, Mouth Pain, Mouth Swelling, Throat Pain, Throat Swelling, Other Respiratory: negative: Cough, Dry, Shortness of Breath, Hemoptysis, SOB with Excertion, Pleuritic Pain, Sputum, Wheezing Cardiovascular: negative: chest pain, palpitations, orthopnea, paroxysmal nocturnal dyspnea, edema, light headedness, other Gastrointestinal: negative: Nausea, Vomiting, Abdominal Pain, Diarrhea, Constipation, Melena, Hematochezia, Other Genitourinary: negative: Dysuria, Frequency, Incontinence, Hematuria, Retention , Other Musculoskeletal: negative: Neck Pain, Shoulder Pain, Arm Pain, Back Pain, Hand Pain, Leg Pain, Foot Pain, Other Skin: negative: Rash, Lesions, Roe, Bruising, Other Neurological: Seizures - Medications/Allergies Allergies/Adverse Reactions: Allergies Allergy/AdvReac Type Severity Reaction Status Date / Time egg Allergy Verified 05/22/17 06:22 Egg Derived Allergy Verified 05/22/17 06:22 peanut Allergy Verified 05/22/17 06:22 peanut oil Allergy Verified 05/22/17 06:22 shellfish derived Allergy Verified 05/22/17 06:21 Medications: Current Medications Acetaminophen (Tylenol) 650 mg PO Q4H PRN PRN Reason: Headache/Fever or Pain Al Hydroxide/Mg Hydroxide (Maalox) 30 ml PO Q6H PRN PRN Reason: Heartburn or Indigestion Benzonatate (Tessalon) 100 mg PO Q4H PRN PRN Reason: Cough Bisacodyl (Dulcolax) 10 mg PO DAILYPRN PRN PRN Reason: Constipation Calcium Carbonate (Tums) 1,000 mg PO Q4H PRN PRN Reason: Heartburn or Indigestion Clonazepam (Klonopin) 0.5 mg PO HS [facility] Last Admin: 05/22/17 21:37 Dose: 0.5 mg Enoxaparin Sodium (Lovenox) 40 mg SC 0900 [facility] Last Admin: 05/23/17 09:21 Dose: 40 mg Famotidine (Pepcid) 20 mg PO BID [facility] Last Admin: 05/23/17 09:21 Dose: 20 mg Guaifenesin (Robitussin Sf) 200 mg PO Q4H PRN PRN Reason: Cough Hydralazine HCl (Apresoline) 10 mg SLOW IVP Q4H PRN PRN Reason: Systolic BP > 170 Levetiracetam (Keppra Oral Solution) 250 mg PO BID [facility] Last Admin: 05/23/17 09:22 Dose: 250 mg Loratadine (Claritin) 10 mg PO DAILYPRN PRN PRN Reason: Sinus Symptoms Lorazepam (Ativan) 1 mg PO Q4H PRN PRN Reason: Seizures Magnesium Hydroxide (Milk Of Magnesium) 30 ml PO DAILYPRN PRN PRN Reason: Constipation Nitroglycerin (Nitrostat) 0.4 mg SL Q5MIN PRN PRN Reason: Chest Pain Ondansetron HCl (Zofran) 4 mg IVP Q6H PRN PRN Reason: Nausea/Vomiting Oxcarbazepine (Trileptal) 600 mg PO BID [facility] Last Admin: 05/23/17 09:21 Dose: 600 mg Senna (Senokot) 2 tab PO HSPRN PRN PRN Reason: Constipation Tramadol HCl (Ultram) 50 mg PO Q4H PRN PRN Reason: Moderate Pain (4-6)
[2017-05-23] MEDS: clonazePAM 0.5 MG TAB PO SCH (21:09)
[2017-05-23] MEDS: Acetaminophen 325 MG TAB PO PRN (21:23)
[2017-05-24] MEDS: Lorazepam 1 MG TAB PO PRN ×2 (00:55→06:42)
[2017-05-24] MEDS ORDERED: Lorazepam 1 MG TAB PO PRN (09:43)
[2017-05-24] MEDS: Famotidine 20 MG TAB PO SCH ×2 (10:00→21:09)
[2017-05-24] MEDS: levETIRAcetam 500 mg/5 ml Oral Solution PO SCH ×2 (10:01→21:10)
[2017-05-24] MEDS: Enoxaparin Sodium 40 MG/0.4 ML SYRINGE SC SCH (10:01)
[2017-05-24] MEDS: OXcarbazepine 300 MG TAB PO SCH ×2 (10:01→21:10)
--- NOTE | 2017-05-24 12:17 | PDOC.PN ---
- Subjective Encounter Start Date: 05/24/17 Encounter Start Time: 12:16 Subjective: had many mini 'episodes' last night.feels tired this morning - Objective MAR Reviewed: Yes Vital Signs & Weight: Vital Signs (12 hours) Temp Pulse Resp BP Pulse Ox 05/24/17 07:42 97.6 F 70 18 118/67 94 L 05/24/17 04:00 97.4 F L 66 16 115/65 96 Weight Admit Weight 237 lb 12.8 oz Weight 237 lb 12.8 oz I&O: 05/23/17 05/24/17 05/25/17 06:59 06:59 06:59 Intake Total 480.5 Balance 480.5 Result Diagrams: 05/23/17 04:37 05/23/17 04:37 Phys Exam - Physical Examination Constitutional: NAD tired looking HEENT: PERRLA, moist MMs, sclera anicteric, oral pharynx no lesions Neck: no nodes, no JVD, supple, full ROM Respiratory: no wheezing, no rales, no rhonchi, clear to auscultation bilateral Cardiovascular: RRR, no significant murmur Gastrointestinal: soft, non-tender, no distention, positive bowel sounds Musculoskeletal: no edema, pulses present Neurological: non-focal, normal sensation, moves all 4 limbs Psychiatric: normal affect, A&O x 3 Skin: no rash Dx/Plan (1) Sleep disorder Code(s): G47.9 - SLEEP DISORDER, UNSPECIFIED Status: Chronic (2) Seizure Code(s): R56.9 - UNSPECIFIED CONVULSIONS Status: Chronic (3) Hyponatremia Code(s): E87.1 - HYPO-OSMOLALITY AND HYPONATREMIA Status: Chronic - Plan plan discussed w/ family, out of bed/ambulate, DVT proph w/SCDs incraese ativan to 2 mg q4h prn at night.cont low dose Klonopin -: pt needs sleep stugy.will try referreal from hospital,if not,has appt w PCP -: hemodynamically stable. cont Trileptal & keppra for h/o seizures -: DC home in am if controlled episodes tonight * . Review of Systems - Review of Systems Constitutional: weakness, malaise, other (headache) ENT: negative: Ear Pain, Ear Discharge, Nose Pain, Nose Discharge, Nose Congestion, Mouth Pain, Mouth Swelling, Throat Pain, Throat Swelling, Other Respiratory: negative: Cough, Dry, Shortness of Breath, Hemoptysis, SOB with Excertion, Pleuritic Pain, Sputum, Wheezing Cardiovascular: negative: chest pain, palpitations, orthopnea, paroxysmal nocturnal dyspnea, edema, light headedness, other Gastrointestinal: negative: Nausea, Vomiting, Abdominal Pain, Diarrhea, Constipation, Melena, Hematochezia, Other Genitourinary: negative: Dysuria, Frequency, Incontinence, Hematuria, Retention , Other Musculoskeletal: negative: Neck Pain, Shoulder Pain, Arm Pain, Back Pain, Hand Pain, Leg Pain, Foot Pain, Other Neurological: negative: Weakness, Numbness, Incoordination, Change in Speech, Confusion, Seizures, Other - Medications/Allergies Allergies/Adverse Reactions: Allergies Allergy/AdvReac Type Severity Reaction Status Date / Time egg Allergy Verified 05/22/17 06:22 Egg Derived Allergy Verified 05/22/17 06:22 peanut Allergy Verified 05/22/17 06:22 peanut oil Allergy Verified 05/22/17 06:22 shellfish derived Allergy Verified 05/22/17 06:21 Medications: Current Medications Acetaminophen (Tylenol) 650 mg PO Q4H PRN PRN Reason: Headache/Fever or Pain Last Admin: 05/23/17 21:23 Dose: 650 mg Al Hydroxide/Mg Hydroxide (Maalox) 30 ml PO Q6H PRN PRN Reason: Heartburn or Indigestion Benzonatate (Tessalon) 100 mg PO Q4H PRN PRN Reason: Cough Bisacodyl (Dulcolax) 10 mg PO DAILYPRN PRN PRN Reason: Constipation Calcium Carbonate (Tums) 1,000 mg PO Q4H PRN PRN Reason: Heartburn or Indigestion Clonazepam (Klonopin) 0.5 mg PO HS [facility] Last Admin: 05/23/17 21:09 Dose: 0.5 mg Enoxaparin Sodium (Lovenox) 40 mg SC 0900 [facility] Last Admin: 05/24/17 10:01 Dose: 40 mg Famotidine (Pepcid) 20 mg PO BID [facility] Last Admin: 05/24/17 10:00 Dose: 20 mg Guaifenesin (Robitussin Sf) 200 mg PO Q4H PRN PRN Reason: Cough Hydralazine HCl (Apresoline) 10 mg SLOW IVP Q4H PRN PRN Reason: Systolic BP > 170 Levetiracetam (Keppra Oral Solution) 250 mg PO BID [facility] Last Admin: 05/24/17 10:01 Dose: 250 mg Loratadine (Claritin) 10 mg PO DAILYPRN PRN PRN Reason: Sinus Symptoms Lorazepam (Ativan) 2 mg PO Q4H PRN PRN Reason: Seizures Magnesium Hydroxide (Milk Of Magnesium) 30 ml PO DAILYPRN PRN PRN Reason: Constipation Nitroglycerin (Nitrostat) 0.4 mg SL Q5MIN PRN PRN Reason: Chest Pain Ondansetron HCl (Zofran) 4 mg IVP Q6H PRN PRN Reason: Nausea/Vomiting Oxcarbazepine (Trileptal) 600 mg PO BID [facility] Last Admin: 05/24/17 10:01 Dose: 600 mg Senna (Senokot) 2 tab PO HSPRN PRN PRN Reason: Constipation Tramadol HCl (Ultram) 50 mg PO Q4H PRN PRN Reason: Moderate Pain (4-6)
[2017-05-24] MEDS: clonazePAM 0.5 MG TAB PO SCH (21:09)
[2017-05-24] MEDS: Acetaminophen 325 MG TAB PO PRN (21:10)
[2017-05-25] MEDS: Famotidine 20 MG TAB PO SCH (10:17)
[2017-05-25] MEDS: levETIRAcetam 500 mg/5 ml Oral Solution PO SCH (10:18)
[2017-05-25] MEDS: Enoxaparin Sodium 40 MG/0.4 ML SYRINGE SC SCH (10:18)
[2017-05-25] MEDS: OXcarbazepine 300 MG TAB PO SCH (10:22)
--- NOTE | 2017-05-25 11:59 | DIS ---
PRIMARY CARE PHYSICIAN: Dr. Lluvia Infante DATE OF ADMISSION: 05/22/2017 DATE OF DISCHARGE: 05/25/2017 ADMITTING DIAGNOSES: Breakthrough seizures versus sleep disorder. CONSULTATIONS DURING THIS HOSPITALIZATION: Neurology, Dr. Lucina Lees. CONDITION OF PATIENT ON THE DAY OF DISCHARGE: I assessed on the day of discharge. She denies any chest pain or shortness of breath. She reportedly had a few episodes last night. Vital signs are stable. S1 and S2 are heard, regular. Lungs are clear to auscultation bilaterally. DISCHARGE MEDICATIONS: Clonazepam 0.5 mg at bedtime, Ativan 2 mg every 4 hours as needed for seizure. Keppra 250 mg 2 times a day, oxcarbazepine 600 mg 2 times a day, ibuprofen 200 mg every 6 hours as needed. HOSPITAL COURSE: is a pleasant 21-year-old lady who was admitted to [facility] on 05/22/2017 for breakthrough seizures versus seizures related to sleep. She was managed with benzodiazepines. She was seen by Neurology Service. She has been referred for an outpatient sleep study. She is being discharged home in a stable condition. She is advised to follow up with her primary care physician in 3-5 days. She was hyponatremic, with a sodium of 129 on 05/23/2017. It improved to 135 on the day of discharge. DISCHARGE DESTINATION: Home. TOTAL AMOUNT OF TIME SPENT COORDINATING THIS DISCHARGE: 32 minutes. FER
[2017-05-25 12:02] VITALS: BP 113/66; TEMP 98.9
[2017-05-25 12:06] LABS: #Basophils 0.1 thou/uL (0.0-0.2); #Eosinphils 0.2 thou/uL (0.0-0.7); #Lymphocytes 1.8 thou/uL (1.20-3.40); #Monocytes 0.4 thou/uL (0.11-0.59); #Neutrophils 2.7 thou/uL (1.40-6.50); %Basophils 1.3 % (0.0-1.0); %Lymphocytes 35.9 % (28.0-48.0); %Monocytes 7.8 % (0.0-4.0); Hemoglobin 12.6 g/dL (12.0-16.0); Mean Corpuscular HGB CONC 32.9 g/dL (32.0-36.0); Mean Corpuscular Hemoglobin 28.6 pg (25.0-35.0); Mean Corpuscular Volume 87.1 fl (77.0-87.0); Mean Platelet Volume 7.5 fL (7.4-10.4); Platelet Count 265 thou/uL (130-400); RBC Distribution Width 12.4 % (11.5-14.5); Red Blood Cell (RBC) Count 4.42 mill/uL (4.00-5.20); White Blood Cell (WBC) Count 5.1 thou/uL (4.8-10.8)
[2017-05-25 12:23] LABS: Anion Gap 12 mmol/L (10-20); BUN (Urea Nitrogen) 4 mg/dL (7.0-18.7); Calc. Creatinine Clearance 228 mL/min (70-130); Calcium 9.2 mg/dL (7.8-10.44); Carbon Dioxide 23 mmol/L (22-29); Chloride 104 mmol/L (98-107); Estimated GFR-MDRD Greater than 90; Glucose 87 mg/dL (70-105); Potassium 4.1 mmol/L (3.5-5.1); Sodium 135 mmol/L (136-145)
== END 2017-05-25 13:34 | disposition home or self-care (01) | DRG 101 ==
LOC: ERS 02:54 → 2SE 04:04
PROVIDERS: ADMIT Internal Medicine; ATTEND Internal Medicine
DX: G40.909 Epilepsy, unspecified, not intractable, without status epilepticus (principal); E87.1 Hypo-osmolality and hyponatremia; D64.9 Anemia, unspecified; G47.8 Other sleep disorders; J45.909 Unspecified asthma, uncomplicated; M08.90 Juvenile arthritis, unspecified, unspecified site; F70 Mild intellectual disabilities; Z91.012 Allergy to eggs; Z91.010 Allergy to peanuts; Z91.013 Allergy to seafood; Z79.899 Other long term (current) drug therapy
CPT/HCPCS: 36415; 70450; 80048; 80053; 80156; 80306; 81003; 81025; 82550; 83605; 84146; 85025; 96365; 96375; J1650; J2060; J7050; Q2009

== ENCOUNTER 2017-09-03 05:51 | Emergency (ER) | payer OTHER ==
[2017-09-03 07:18] LABS: #Basophils 0.1 thou/uL (0.0-0.2); #Eosinphils 0.1 thou/uL (0.0-0.7); #Lymphocytes 2.3 thou/uL (1.20-3.40); #Monocytes 0.5 thou/uL (0.11-0.59); #Neutrophils 4.7 thou/uL (1.40-6.50); %Basophils 1.4 % (0.0-1.0); %Eosinophils 1.6 % (0.0-10.0); %Lymphocytes 29.6 % (21.0-51.0); %Monocytes 6.9 % (0.0-10.0); %Neutrophils 60.5 % (42.0-75.0); Hemoglobin 11.7 g/dL (12.0-16.0); Mean Corpuscular HGB CONC 33.7 g/dL (32.0-36.0); Mean Corpuscular Hemoglobin 27.8 pg (27.0-31.0); Mean Corpuscular Volume 82.5 fl (81.0-99.0); Mean Platelet Volume 8.9 fL (7.4-10.4); Platelet Count 221 thou/uL (130-400); RBC Distribution Width 12.5 % (11.5-14.5); Red Blood Cell (RBC) Count 4.19 mill/uL (4.20-5.40); White Blood Cell (WBC) Count 7.8 thou/uL (4.8-10.8)
[2017-09-03 07:38] LABS: ALT (SGPT) 14 U/L (8-55); AST (SGOT) 17 U/L (5-34); Alkaline Phosphatase 234 U/L (40-150); Anion Gap 15 mmol/L (10-20); BUN (Urea Nitrogen) 8 mg/dL (7.0-18.7); Bilirubin, Total 0.2 mg/dL (0.2-1.2); Calc. Creatinine Clearance 0 mL/min (70-130); Carbon Dioxide 19 mmol/L (22-29); Chloride 106 mmol/L (98-107); Estimated GFR-MDRD Greater than 90; Glucose 94 mg/dL (70-105); Sodium 136 mmol/L (136-145)
[2017-09-03 09:35] LABS: Bilirubin Negative (Negative); Blood, Urine Negative (Negative); Clarity CLEAR (Clear); Glucose, Urine (Dipstick) Negative (Negative); Leukocyte Negative (Negative); Nitrite Negative (Negative); Pregnancy Test - Urine (BHCG) Negative (Negative); Pregu Control Bar Appear? YES (CONTROL BAR); Protein, Urine (Dipstick) Negative (Neg-Trace); Specific Gravity 1.025 (1.002-1.036); Specific Gravity, Urine 1.025 (1.002-1.036); Urobilinogen 0.2 mg/dL (0.2-1.0)
[2017-09-03 09:36] LABS: Pregu Control Background? CLEAR/WHITE (CLR/WHITE)
== END 2017-09-03 12:15 | disposition home or self-care (01) ==
LOC: ERS 05:51
DX: G40.909 Epilepsy, unspecified, not intractable, without status epilepticus (principal); J45.909 Unspecified asthma, uncomplicated; Z79.899 Other long term (current) drug therapy
CPT/HCPCS: 80053; 81003; 81025; 84146; 85025; 99284

== ENCOUNTER 2018-01-15 14:53 | Emergency (ER) | payer OTHER ==
[2018-01-15] MEDS ORDERED: Lorazepam 2 MG/ML VIAL ONE (15:56)
[2018-01-15 16:11] LABS: #Basophils 0.1 thou/uL (0.0-0.2); #Eosinphils 0.1 thou/uL (0.0-0.7); #Lymphocytes 1.6 thou/uL (1.20-3.40); #Monocytes 0.4 thou/uL (0.11-0.59); #Neutrophils 2.8 thou/uL (1.40-6.50); %Basophils 1.2 % (0.0-1.0); %Eosinophils 1.1 % (0.0-10.0); %Lymphocytes 31.8 % (21.0-51.0); %Monocytes 8.9 % (0.0-10.0); Hemoglobin 11.2 g/dL (12.0-16.0); Mean Corpuscular HGB CONC 32.7 g/dL (32.0-36.0); Mean Corpuscular Hemoglobin 26.5 pg (27.0-31.0); Mean Platelet Volume 8.2 fL (7.4-10.4); Platelet Count 237 thou/uL (130-400); RBC Distribution Width 13.4 % (11.5-14.5); Red Blood Cell (RBC) Count 4.22 mill/uL (4.20-5.40); White Blood Cell (WBC) Count 4.9 thou/uL (4.8-10.8)
[2018-01-15 16:16] LABS: BHCG - Serum Negative (NEGATIVE); Pregs Control Background? CLEAR/WHITE (CLR/WHITE); Pregs Control Bar Appear? YES (CONTROL BAR)
[2018-01-15 16:31] LABS: ALT (SGPT) 17 U/L (8-55); AST (SGOT) 17 U/L (5-34); Albumin 3.8 g/dL (3.5-5.0); Alkaline Phosphatase 187 U/L (40-150); Anion Gap 11 mmol/L (10-20); BUN (Urea Nitrogen) Less than 4 mg/dL (7.0-18.7); Bilirubin, Total 0.2 mg/dL (0.2-1.2); Calc. Creatinine Clearance 0 mL/min (70-130); Calcium 8.6 mg/dL (7.8-10.44); Carbon Dioxide 21 mmol/L (22-29); Chloride 102 mmol/L (98-107); Estimated GFR-MDRD Greater than 90; Globulin 3.4 g/dL (2.4-3.5); Glucose 90 mg/dL (70-105); Protein, Total 7.2 g/dL (6.0-8.3); Sodium 130 mmol/L (136-145)
[2018-01-15 17:32] LABS: Bilirubin Negative (Negative); Blood, Urine Negative (Negative); Clarity CLEAR (Clear); Glucose, Urine (Dipstick) Negative (Negative); Leukocyte Negative (Negative); Nitrite Negative (Negative); Protein, Urine (Dipstick) Negative (Neg-Trace); Specific Gravity, Urine 1.015 (1.002-1.036); Urobilinogen 0.2 mg/dL (0.2-1.0); pH, Urine 7.5 (5.0-9.0)
--- NOTE | 2018-01-21 23:07 | EKG ---
Test Reason : Blood Pressure : / mmHG Vent. Rate : 085 BPM Atrial Rate : 085 BPM P-R Int : 152 ms QRS Dur : 090 ms QT Int : 374 ms P-R-T Axes : 025 000 021 degrees QTc Int : 445 ms Normal sinus rhythm Normal ECG Confirmed by JESUS FLOOD ([id number]), dictionary editor CARON SOSA ([id number]) on 01/21/2018 11:06:57 PM Referred By: Confirmed By:JESUS FLOOD
== END 2018-01-15 19:11 | disposition home or self-care (01) ==
LOC: ERS 14:53
DX: G40.909 Epilepsy, unspecified, not intractable, without status epilepticus (principal); J45.909 Unspecified asthma, uncomplicated; Z79.899 Other long term (current) drug therapy
CPT/HCPCS: 36415; 80053; 81003; 84703; 85025; 93005; 96361; 96374; J2060

== ENCOUNTER 2021-09-08 17:18 | Emergency (ER) | payer OTHER | END 2021-09-08 22:22 | disposition home or self-care (01) | LOC: ERS 17:18 | DX: U07.1 COVID-19 (principal) | CPT/HCPCS: 99282 ==